=== PATIENT | male | born 1975 | race Hispanic/Latino ===

== ENCOUNTER 2017-12-22 21:08 | Emergency (ER) | payer SELFPAY ==
[2017-12-22] MEDS ORDERED: Lidocaine 1% w/Epinephrine 1:100K 20 ML VIAL ONE (21:56)
[2017-12-22] MEDS ORDERED: Bacitracin Zinc 1 Packet ONE (22:24)
== END 2017-12-22 22:41 | disposition home or self-care (01) ==
LOC: ERS 21:08
DX: S51.812A Laceration without foreign body of left forearm, initial encounter (principal); W22.8XXA Striking against or struck by other objects, initial encounter
CPT/HCPCS: 12001; J2001